=== PATIENT | male | born 1965 | race Caucasian/White ===

== ENCOUNTER 2018-09-26 01:23 | Inpatient (IN) | END 2018-10-02 16:32 | disposition home or self-care (01) | DRG 640 ==

== ENCOUNTER 2018-12-07 06:07 | Day surgery (SDC) | payer OTHER ==
[2018-12-06 16:01] VITALS: BMI 19.1
[2018-12-07] VITALS (16 sets, daily range): BP systolic 127–181; BP diastolic 66–81; PULSE 72–82; RESP 15–18; Ht 165.1 cm; Wt 66.7 kg
[~2018-12-07] VITALS: Ht 165.1 cm; Wt 66.7 kg
[~2018-12-07 06:07] MED LIST: AMLO-147 PO; CARV12.579 PO; CLON1PAT3 TRANSDERM; FER325 PO; FOLI0.8T2 PO; FURO40TA4 PO; GLIP2.5T3 PO; HYDR-3672 PO; LOSA100T15 PO; OMEP20CA16 PO; SIMV20TA20 PO
[2018-12-07] MEDS ORDERED: CEFAZOLIN 1 GM INJ ONE (07:00)
[2018-12-07] MEDS ORDERED: SEVOFLURANE 15 MIN ONE (07:00)
--- NOTE | 2018-12-07 07:17 | HPN ---
Date/Time of Note Date/Time of Note DATE: 12/07/18 TIME: 07:16 Interval H&P Admission Note Pt. seen H&P reviewed: No system changes FEDERICO BALTAZAR MD Dec 07, 2018 07:17
[2018-12-07] MEDS ORDERED: CALC667C PO (07:34)
[2018-12-07] MEDS ORDERED: NEPH PO (07:35)
[2018-12-07] MEDS ORDERED: CHOL400T10 PO (07:35)
[2018-12-07] MEDS ORDERED: GELATIN SIZE 100 SPONGE ONE (07:43)
[2018-12-07] MEDS ORDERED: LIDOCAINE 1% (MPF) 30 ML INJ ONE (07:43)
[2018-12-07] MEDS ORDERED: THROMBIN (BOVINE) 5,000 UNIT VIAL TP ONE (07:43)
[2018-12-07] MEDS ORDERED: HEPARIN 1000 UNITS/ML 10 ML INJ ONE (07:44)
[2018-12-07] MEDS ORDERED: LIDOCAINE 1% (MPF) 30 ML INJ INJ ONE (07:45)
[2018-12-07] MEDS ORDERED: HEPARIN 1000 UNITS/ML 10 ML INJ IRR ONE (07:45)
--- NOTE | 2018-12-07 07:48 | PREAC ---
Date/Time of Note Date/Time of Note DATE: 12/07/18 TIME: 07:47 Anesthesia Eval and Record Evaluation Time Pre-Procedure Interview DATE: 12/07/18 TIME: 07:47 Age 53 Sex male NPO: 8 hrs Preoperative diagnosis esrd Planned procedure left av fistula Past Medical History Past Medical History: Includes Cardio: HTN Endo: Diabetes Renal: ESRD on dialysis Surgery & Anesthesia Issues No known issue Meds Anticoagulation: No Beta Avi within 24 hr: Yes Active Scripts Losartan Potassium* (Losartan Potassium*) 100 Mg Tablet, 100 MG PO DAILY for 30 Days, TAB 3 Refills Prov:ORACIO HANSON 10/01/18 Glipizide* (Glipizide ER*) 2.5 Mg Tab.er.24, 2.5 MG PO BEFORE BREAKFAST, #30 TAB Prov:ZOEY LAZO MD 09/29/18 Furosemide* (Furosemide*) 40 Mg Tablet, 40 MG PO DAILY, #30 TAB Prov:ZOEY LAZO MD 09/29/18 Hydralazine Hcl* (Apresoline*) 50 Mg Tab, 100 MG PO Q8 for 30 Days, #90 TAB Prov:ZOEY LAZO MD 09/29/18 Carvedilol* (Carvedilol*) 12.5 Mg Tablet, 12.5 MG PO BID for 30 Days, #60 TAB Prov:ZOEY LAZO MD 09/29/18 Amlodipine Besylate* (Amlodipine Besylate*) 10 Mg Tablet, 10 MG PO DAILY for 30 Days, #30 TAB Prov:ZOEY LAZO MD 09/29/18 Ferrous Sulfate* (Ferrous Sulfate*) 325 Mg Tabec, 325 MG PO BID for 30 Days, #60 TAB Prov:ZOEY LAZO MD 09/29/18 Reported Medications Cholecalciferol* (Vitamin D*) 400 Unit Tablet, 1000 UNIT PO DAILY, TAB 12/07/18 Multivit/Ca Carb/B Cmplx/Fa* (Peg-Linette*) 1 Tab Tab, 1 TAB PO DAILY, TAB 12/07/18 Calcium Acetate* (Calcium Acetate*) 667 Mg Capsule, 667 MG PO WITH MEALS BEDTIME, #30 CAP 12/07/18 Folic Acid/Vitamin B Comp W-C (Renal Multivitamin Tablet) 0.8 Mg Tablet, 0.8 MG PO DAILY for SUPPLEMENT TAKE ONE TABLET BY MOUTH DAILY 09/26/18 Discontinued Reported Medications Simvastatin (Simvastatin) 20 Mg Tablet, 20 MG PO QHS 09/26/18 Omeprazole* (Omeprazole*) 20 Mg Capsule.dr, 20 MG PO DAILY 09/26/18 Discontinued Scripts Clonidine Patch (CLONIDINE PATCH) 0.3 Mg/24 Hr Patch, 1 PATCH TRANSDERM Q7D for 30 Days, #4 PATCH.WK Prov:ZOEY LAZO MD 09/29/18 Meds reviewed: Yes Allergies Coded Allergies: No Known Allergy (Unverified , 10/02/18) Allergies Reviewed: Yes Labs/Studies Labs Reviewed: Reviewed by anesthesiologist test: N/A Pre-procedure Exam Last vitals Vital Signs Date Temp Pulse Resp B/P (MAP) Pulse Ox O2 O2 Flow FiO2 Time Delivery Rate 12/07/18 97.7 72 18 148/77 97 Room Air 06:58 (100) Airway: Adequate mouth opening, Adequate thyromental dist Mallampati: Mallampati I Teeth: Normal Lung: Normal Heart: Normal ASA Physical Status ASA physical status: 3 Emergency: None Planned Anesthetic General/MAC: LMA Planned Pain Management Parenteral pain med Pre-operative Attestations Prior to commencing anesthesia and surgery, the patient was re-evaluated, there was verification of: *The patient's identity *The results of appropriate recent lab work and preoperative vital signs *The above evaluation not changing prior to induction *Anesthetic plan, risk benefits, alternative and complications discussed with patient/family; questions answered; patient/family understands, accepts and wishes to proceed. BARBARA SANTOS Dec 07, 2018 07:48
[2018-12-07] MEDS ORDERED: PROPOFOL 20 ML ONE (07:54)
--- NOTE | 2018-12-07 09:13 | SIPON ---
Date/Time of Note Date/Time of Note DATE: 12/07/18 TIME: 09:12 Operative Report Preoperative Diagnosis ESRD Postoperative Diagnosis same Operation/Procedure Performed L arm snuffbox AVF creation Surgeon see signature line [facility] LIDA Nayak Anesthesia: general Estimated blood loss: 0 - 10 ml's Transfusion Required none Specimen none Grafts/Implants none Complications none FEDERICO BALTAZAR MD Dec 07, 2018 09:13
--- NOTE | 2018-12-07 09:29 | PAC ---
Date/Time of Note Date/Time of Note DATE: 12/07/18 TIME: 09:28 Post-Anesthesia Notes Post-Anesthesia Note Last documented vital signs Vital Signs Date Temp Pulse Resp B/P (MAP) Pulse Ox O2 O2 Flow FiO2 Time Delivery Rate 12/07/18 97.7 72 18 148/77 97 Room Air 0928 (100) Activity: WNL Respiratory function: WNL Cardiovascular function: WNL Mental status: Baseline Pain reasonably controlled: Yes Hydration appropriate: Yes Nausea/Vomiting absent: Yes BARBARA SANTOS Dec 07, 2018 09:29
[2018-12-07] MEDS ORDERED: ONDANSETRON 4 MG INJ IV PRN (09:30)
[2018-12-07] MEDS ORDERED: LABETALOL HCL 20MG INJ IV PRN (09:30)
[2018-12-07] MEDS ORDERED: MEPERIDINE 25 MG INJ IV PRN (09:30)
[2018-12-07] MEDS ORDERED: DIPHENHYDRAMINE 50 MG INJ IV PRN (09:30)
[2018-12-07] MEDS ORDERED: ALBUMIN HUMAN 5% 250 ML IV PRN (09:30)
[2018-12-07] MEDS ORDERED: OXYCODONE/ACETAMINOPHEN (5/325) TAB PO PRN ×2 (09:30)
[2018-12-07] MEDS ORDERED: FENTAnyl 50 MCG/ML VIAL IV PRN ×3 (09:30)
[2018-12-07] MEDS ORDERED: ALBUTEROL 0.083% (NEB) 2.5 MG/3 ML AMP HHN PRN (09:30)
[2018-12-07] MEDS ORDERED: hydrALAzine 20 MG INJ IV PRN (09:30)
[2018-12-07] MEDS ORDERED: HYDROmorphONE 1 MG/5 ML IV SYRINGE IV PRN ×3 (09:30)
[2018-12-07] MEDS ORDERED: hydrALAzine 20 MG INJ ONE (09:32)
--- NOTE | 2018-12-07 09:32 | OPR ---
DATE OF OPERATION: 12/07/2018 PREOPERATIVE DIAGNOSIS: End-stage renal disease. POSTOPERATIVE DIAGNOSIS: End-stage renal disease. PROCEDURE PERFORMED: Creation of left snuffbox AV fistula. ANESTHESIA: LMA with local. ESTIMATED BLOOD LOSS: Minimal. COMPLICATIONS: No intraprocedural complications. INDICATIONS: A 53-year-old diabetic hypertensive gentleman with end-stage renal disease on hemodialy sis via Perm-A-Cath. He is right-handed. He has a good left cephalic vein all the way down to the s nuffbox and created a snuffbox branch of the radial artery to cephalic vein AV fistula. DESCRIPTION OF PROCEDURE: Patient was brought to the operating room and placed on the table in supin e position. After induction of LMA anesthesia, left arm was prepped and draped in the usual sterile fashion. We had already map the vein with ultrasound. I marked it on the skin. I then injected abo ut 5 mL of 1% Xylocaine right over the snuffbox in the left arm and then made a longitudinal incision over the cephalic vein right over the snuffbox. I then dissected down through subcutaneous tissue u sing electrocautery. I carefully dissected out the cephalic vein down to the distal extent of my inc ision. I then ligated it distally and then flushed the vein. It was anastomosed. The vein was good caliber, 3 to 4 mm in diameter. I then cut the connective tissue layer overlying the radial artery snuffbox branch. I then dissected that out. It was a good vein. It was about 2 mm. I clamped it p roximally and distally, made an 8 mm long anterior arteriotomy and spatulated the end of the vein to fit the arteriotomy and anastomosed the distal end of vein to the side of the artery using 6-0 Prolen e suture in a running standard vascular surgical fashion. I removed the clamps. There was a good th rill and good hemostasis. I closed the skin incision in 2 layers using an inner layer of 3-0 Vicryl and an outer layer of 4-0 Monocryl subcuticular suture. Sterile dressing was applied. The patient w as then transferred to recovery in stable condition. Dictated By: FEDERICO PEREZ/JAMIE Conf#: [id number] DID#: [id number] CC: FEDERICO BALTAZAR MD; MARTIN WALLS MD;*[facility]*
== END 2018-12-07 11:15 | disposition home or self-care (01) ==
LOC: SDS 06:07
PROVIDERS: ATTEND Surgery Vascular Surgery
DX: I12.0 Hypertensive chronic kidney disease with stage 5 chronic kidney disease or end stage renal disease (principal); N18.6 End stage renal disease; E11.9 Type 2 diabetes mellitus without complications
CPT/HCPCS: 36821; 71045; 80053; 85025; 85610; 85730; 93005; J0360; J1644; J3010; Z7610; J0690